=== PATIENT | male | born 1965 | race Caucasian/White ===

== ENCOUNTER → 2017-01-04 | Outpatient (CLI) | payer OTHER | LOC: LAB 15:20 | DX: H53.2 Diplopia (principal) | CPT/HCPCS: 82565; 84520 ==

== ENCOUNTER → 2020-06-24 | Outpatient (CLI) | payer BC ==
[~2020-06-24] MED LIST: ASPIRIN CHEWABL81 MG PO
== END ==
LOC: CT 06-10 10:30
DX: R10.32 Left lower quadrant pain (principal)
CPT/HCPCS: Q9967